=== PATIENT | male | born 1975 | race Two or more races ===

== ENCOUNTER 2017-05-10 11:54 | Emergency (ER) | payer MEDICAID ==
[2017-05-10 12:05] VITALS: BP 132/85; PULSE 100; RESP 18; TEMP 98; O2SAT 97
[2017-05-10] MEDS ORDERED: CEPHALEXIN 500 MG CAP PO ONE (12:15)
[2017-05-10] MEDS ORDERED: IBUPROFEN 600 MG TAB PO ONE (12:16)
--- NOTE | 2017-05-10 12:19 | EDPHY ---
H & P Time Seen by Provider: 05/10/17 12:12 HPI/ROS: CHIEF COMPLAINT: Left knee pain HISTORY OF PRESENT ILLNESS: The patient is a 47-year-old male who presents to the emergency department left knee pain. 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 He states he has had no recent trauma or fall. He noticed increasing pain over his left patella. He describes pain is mild to moderate. It is worse with movement. There is mild redness. He denies any fevers or chills. REVIEW OF SYSTEMS: My complete review of systems is negative except as mentioned in the HPI. Past Medical/Surgical History: Includes clavicle fracture and appendectomy Social history: The patient smokes. Smoking Status: Current every day smoker Physical Exam: 36.6, 132/85, 100, 18, 97% on room air GENERAL: Well-appearing, in no acute distress, alert. HEENT: Eyes normal to inspection, normal pharynx, no signs of dehydration. RESPIRATORY: Clear to auscultation bilaterally. CVS: Regular rate and rhythm, no rubs, murmurs, or gallops. SKIN: Normal color, no rash, warm, dry. No pallor. See knee exam EXTREMITIES: No pedal edema, no calf tenderness, no Homans sign or cords, no joint swelling. Patient's left knee has mild swelling over the prepatellar bursa. There is no discomfort with passive range of motion of his knee. There is no streaking up the leg. No visible discharge or pus. Ligaments are stable intact. NEURO/PSYCH: Alert and oriented x3, normal mood and affect, normal motor sensory exam. Constitutional: Initial Vital Signs Temperature (C) 36.6 C 05/10/17 12:02 Heart Rate 100 05/10/17 12:02 Respiratory Rate 18 05/10/17 12:02 Blood Pressure 132/85 H 05/10/17 12:02 O2 Sat (%) 97 05/10/17 12:02 O2 Delivery Mode Room Air Allergies/Adverse Reactions: No Known Allergies Allergy (Unverified 02/19/15 18:42) Home Medications: Medication Instructions Recorded Cephalexin [Keflex (*)] 500 mg PO QID 7 Days cap 05/10/17 Ibuprofen 600 mg PO TID #15 tablet 05/10/17 Medical Decision Making ED Course/Re-evaluation: In the emergency department I discussed possible etiologies with the patient. At this time it appears that he has prepatellar bursitis. I do not feel he has a septic joint. I discussed the need for treatment. I discussed warnings prior to patient leaving. He was given a 1st dose of Keflex and ibuprofen in the emergency department. He was instructed to take his entire course of Keflex. Differential Diagnosis: My differential includes but is not limited to bursitis, septic joint, cellulitis, abscess, internal derangement of the knee, fracture, sprain Departure - Departure Disposition: Home, Routine, Self-Care Clinical Impression: Bursitis Qualifiers: Bursitis location: knee Knee bursitis location: prepatellar bursitis Laterality : left Qualified Code(s): M70.42 - Prepatellar bursitis, left knee Condition: Good Instructions: Knee Bursitis (ED) Additional Instructions: Take your entire course of antibiotics. Return with increasing pain, swelling, redness, fever or any other concerns. Referrals: Pramod Bain MD [Medical Doctor] - 3-4 days, if not improved Prescriptions: Cephalexin [Keflex (*)] 500 mg PO QID 7 Days cap Ibuprofen 600 mg PO TID #15 tablet
== END 2017-05-10 12:30 | disposition home or self-care (01) ==
LOC: CED 11:54
DX: M70.42 Prepatellar bursitis, left knee (principal); F17.200 Nicotine dependence, unspecified, uncomplicated